=== PATIENT | female | born 1970 | race Caucasian/White ===

== ENCOUNTER 2019-03-03 09:50 | Outpatient (REF) | payer BC, SELFPAY ==
[2019-03-03 13:24] LABS: Amylase 106 U/L (25-115); Lipase 123 U/L (73-393)
[2019-03-03 13:42] LABS: Cholesterol 189 mg/dL (50-200); HDL Cholesterol 72 mg/dL (40-60); LDL CHOLESTEROL 100 mg/dL (<100); Triglyceride 65 mg/dL (30-150)
== END 2019-03-03 10:10 ==
LOC: NCHCN 09:50
PROVIDERS: PCP Nurse Practitioner Family; Visit Provider Nurse Practitioner Family
DX: R10.13 Epigastric pain (principal)
CPT/HCPCS: 80061; 83690; 83721; 82150

== ENCOUNTER 2019-03-07 01:07 | Outpatient (CLI) | payer BC, SELFPAY ==
--- NOTE | 2019-03-07 08:33 | DI.US_ITS ---
SYMPTOM/DIAGNOSIS: EPIGASTRIC DISCOMFORT, R10.13 ABDOMEN ULTRASOUND The liver and spleen are normal in size and echogenicity. The gallbladder is unremarkable, without evidence of stones or wall thickening. No biliary dilatation is seen. The kidneys and aorta as well as pancreas appear normal. There is no ascites. IMPRESSION: Negative abdominal ultrasound.
== END 2019-03-07 01:27 ==
PROVIDERS: PCP Nurse Practitioner Family; Visit Provider Nurse Practitioner Family
DX: R10.13 Epigastric pain (principal)
CPT/HCPCS: 76700

== ENCOUNTER 2019-05-12 01:13 | Outpatient (CLI) | payer OTHER, SELFPAY ==
--- NOTE | 2019-05-12 07:50 | DI.MAMMO_ITS ---
SYMPTOM/DIAGNOSIS: SCREENING, HEALTH CARE, Z00.00 MAMMOGRAMS: Mammograms were interpreted according to the usual protocol including computer analysis with CAD system, tomosynthesis and C view imaging. Comparison is made with prior examinations. Breast density, category B. No suspicious masses or microcalcifications are seen. There is no definite evidence of malignancy. IMPRESSION: Negative mammogram. Routine screening is recommended. Category 1, MQSA ASSESSMENT OF FINDINGS: Negative. Category 1. Patient will receive a letter notifying them of these results. BI-RADS category B. There are scattered areas of fibroglandular density.
== END 2019-05-12 01:33 ==
PROVIDERS: PCP Nurse Practitioner Family; Visit Provider Nurse Practitioner Family
DX: Z00.00 Encounter for general adult medical examination without abnormal findings (principal); Z12.31 Encounter for screening mammogram for malignant neoplasm of breast
CPT/HCPCS: 77063; 77067

== ENCOUNTER 2022-09-01 18:18 | Emergency (ER) | payer MEDICAID, SELFPAY ==
--- NOTE | 2022-09-01 18:15 | RT.EKG_ITS ---
APPROVED REPORT Exam: Resting ECG Reason for Exam: CHEST PAIN Patient Location: E HR:71 bpm ECG Measurements Heart Rate 71 AXIS NV 148 P 44 QRSd 91 QRS -6 QT 402 T 3 QTc 438 Conclusion Sinus rhythm...normal P axis, V-rate 60- 99 Abnrm R prog, consider ASMI or lead placement...Q >30mS, diminished R, V1-V2
[2022-09-01 18:26] VITALS: BP 146/83; PULSE 85; RESP 18; TEMP 37.1; O2SAT 99
--- NOTE | 2022-09-01 19:24 | ED.GENADUL_ITS ---
Discharge Plan Disposition Patient Disposition: STILL A PATIENT Discharge Details Chief Complaint: Chest Pain Primary Care Provider: Beverly Zaragoza ED Provider: Miky Sanchez Home Meds and New Rx's Prescriptions: No Action aspirin 81 MG tablet,chewable 81 mg PO DAILY cetirizine 10 MG tablet,chewable 10 mg PO HS budesonide-formoterol [Symbicort] 10.2 GM HFA aerosol inhaler 2 puff Inhalation BID albuterol sulfate [ProAir RespiClick] 90 MCG aerosol powdr breath activated 90 mcg Inhalation PRN No Known Home Meds Medical Decision Making 1928 --52-year-old female with positive family history for coronary artery disease, diabetes, here with chest tightness that started earlier today and has persisted. Patient also with intermittent episodes of sweating, nausea and presyncope this been occurring 2 times a day over the past couple months. Patient currrently with mild discomfort. Patient is hemodynamically stable, saturating well in no respiratory distress. Concern for ACS. EKG was reviewed and interpreted by me: Please see report, sinus rhythm 71 bpm, no STEMI, abnormal R wave progression. Plan to obtain troponin and trend. HPI General Mode of arrival: ambulatory . Date/Time Provider Initiated Documentation: 09/01/22 18:49 . Limitations to Documentation: no limitations . Information obtained by: patient . HPI Narrative: 52-year-old female with history of asthma, positive family history for cardiac disease, diabetes, here with chief complaint of dyspnea. Patient notes chest discomfort started this morning and has persisted all day. Discomfort has waxed and waned since onset. Discomfort is described as a tightness and localized to left upper chest. She does note intermittent light discomfort in her chest that occurs every so often but does not persist. She also notes intermittent diaphoresis and nausea with presyncope that occurs about 2-3 times daily and last approximately 20 minutes over the past couple months. Related Data Home Medications Medication Instructions Recorded Confirmed Unknown [No Known Home Meds] 01/21/15 01/21/15 albuterol sulfate 90 mcg/actuation 90 mcg inhalation PRN 04/26/18 breath activated powder inhaler (ProAir RespiClick) aspirin 81 mg chewable tablet 81 mg PO DAILY 04/26/18 budesonide-formoterol HFA 160 2 puff inhalation BID 04/26/18 mcg-4.5 mcg/actuation aerosol inhaler (Symbicort) cetirizine 10 mg chewable tablet 10 mg PO HS 04/26/18 Allergies Allergy/AdvReac Type Severity Reaction Status Date / Time Sulfa (Sulfonamide Allergy Mild Unverified 06/10/18 14:32 Antibiotics) General Stated Complaint: Chest Pain MOO: 3 Review of Systems Constitutional Constitutional: Denies fever(s) Cardiovascular Cardiovascular: Reports as per HPI, Reports chest pain and Denies dyspnea Respiratory Respiratory: Denies dyspnea PFSH Medical History Asthma Grief reaction Social History Smoking/Tobacco Use Status: Never Smoking risk assessment performed?: Yes Alcohol Intake: current Alcohol Intake frequency: a few times a month Drug use: Never Substance use type: does not use Do you feel safe at home: Yes Do you feel safe in your relationship?: Yes Exam Const General: cooperative and no acute distress HENMT Mouth: moist mucous membranes Eyes Conjunctivae: normal conjunctivae Sclera: normal sclerae Neck Neck: trachea midline and supple Resp Auscultation: clear to auscultation bilaterally, no rales, no rhonchi and no wheezes Cardio Rate: regular rate and not tachycardic Rhythm: regular rhythm GI Palpation: soft, not firm, no guarding, no masses, not rigid and nontender Skin General skin exam: no rashes or lesions noted Neuro General: patient alert, patient awake and tone normal Extrem General: no calf tenderness and no edema Psych Appearance: grossly normal Mental Status: mental status grossly normal Course Vital Signs Vital signs: Vital Signs Temperature 37.1 C 09/01/22 18:26 Pulse 85 09/01/22 18:26 Respiratory Rate 18 09/01/22 18:26 Blood Pressure 146/83 H 09/01/22 18:26 Pulse Oximetry 99 09/01/22 18:26 Temperature 37.1 C 09/01/22 18:26 Temperature Source Tympanic 09/01/22 18:26 Pulse 85 09/01/22 18:26 Respiratory Rate 18 09/01/22 18:26 Respiratory Effort 09/01/22 18:29 Blood Pressure 146/83 H 09/01/22 18:26 Blood Pressure Position Supine 09/01/22 18:26 Pulse Oximetry 99 09/01/22 18:26 Oxygen Delivery Method Room Air 09/01/22 18:26 Oxygen Flow Rate 0 09/01/22 18:26 Pain Level 5 09/01/22 18:26 PAWSS Have you Been Recently Intoxicated or Drunk Within the Last 30 days?: No Have you Ever Experienced Previous Episodes of Alcohol Withdrawal?: No Have you ever Experienced Withdrawal Seizures?: No Have you ever Experienced Delirium Tremens(DT)s?: No Have you ever undergone Alcohol Rehabilitation Treatment (i.e, inpt ot outpatient treatment programs)?: No Have you ever Experienced Blackouts?: No Have you ever Combined Alcohol with other Downers within the last 90 days?: No Have you ever Combined Alcohol with any other Substance of Abuse during the last 90 days?: No Positive Blood Alcohol level on Presentation? [PCS.BAL]: No Evidence of Increased Autonomic Activity (i.e. HR>120, tremor, sweating, agitation, nausea)?: No Result: 0
[2022-09-01 19:34] LABS: Abs Immature Grans 0.05 10^3/uL (0.0-0.06); Absolute Basophil Count 0.07 10^3/uL (0.0-0.2); Absolute Eosinophil Count 0.14 10^3/uL (0.0-0.7); Absolute Lymphocyte Count 2.74 10^3/uL (1.2-3.4); Absolute Monocyte Count 0.94 10^3/uL (0.1-0.8); Basophils % 0.5; HCT 38.7 % (36.0-46.0); Immature Grans % 0.4; Lymphocytes % 19.2; MCHC 33.6 % (32.0-36.0); MCV 92 fL (80-95); MPV 11.4 fL (8.0-11.0); Monocytes % 6.6; Neutrophils % 72.3; Platelet Count 240 10^3/uL (130-400); RDW 13.2 % (11.7-14.6); WBC 14.27 10^3/uL (4.4-10.8)
[2022-09-01 19:41] LABS: Absolute Neutrophil Count 10.32 10^3/uL (1.2-6.7)
--- NOTE | 2022-09-01 20:00 | DI.RAD_ITS ---
Exam(s) XR CHEST 2V PA LATERAL EXAM: XR CHEST 2V PA LATERAL CLINICAL HISTORY: chest pain TECHNIQUE: 2D digital imaging was performed of the chest. Two images were obtained. PA and lateral views were obtained. COMPARISON: CR CHEST 2 VIEWS PA,LAT from 06/21/2017 FINDINGS: MEDIASTINUM: Normal. HEART: Normal. PULMONARY VASCULATURE: Normal. LUNGS: Clear. PLEURAL SPACE: No pleural effusion or pneumothorax. BONE:Within normal limits for the patient's age. OTHER FINDINGS:Normal. IMPRESSION: No acute pulmonary findings. DATA REPOSITORY: RADIATION DOSE DELIVERED:
[2022-09-01] MEDS: Aspirin 325 MG TAB PO (20:14)
[2022-09-01 20:36] LABS: ALT 20 U/L (14-59); AST 26 U/L (15-37); Albumin 3.8 g/dL (3.4-5.0); Alkaline Phosphatase 90 U/L (46-116); BUN 16 mg/dL (7-18); Bilirubin, Total 1.1 mg/dL (0.2-1.0); CREATININE 0.8 mg/dL (0.55-1.02); Calcium 9.2 mg/dL (8.5-10.1); Chloride 103 mmol/L (98-107); Glucose 121 mg/dL (74-106); Potassium 4.3 mmol/L (3.5-5.1); Sodium 140 mmol/L (136-145); Total Protein 7.5 g/dL (6.4-8.2); Troponin I < 50 ng/L (<or=60)
--- NOTE | 2022-09-01 20:57 | DI.VRAD_ITS ---
PROCEDURE INFORMATION: Exam: XR Chest Exam date and time: 09/01/2022 8:34 PM Age: 52 years old Clinical indication: Other: Chest pain TECHNIQUE: Imaging protocol: Radiologic exam of the chest. Views: 2 views. COMPARISON: CR CHEST 2 VIEWS PA,LAT 06/21/2017 11:03 AM FINDINGS: Lungs: Clear lungs. Pleural spaces: No pneumothorax. No sizable pleural effusion. Heart/Mediastinum: No cardiomegaly. Bones/joints: Unremarkable. IMPRESSION: Clear lungs. Dictated and Authenticated by: Karan Kirby MD. Ordering:JJ Bolaños MD
--- NOTE | 2022-09-01 22:18 | ED.PROG_ITS ---
Date of service: 09/01/22 Time of Service: 22:19 Medical Decision Making pt's initial lab work and xray unremarkable, she remains stable. She states when she moves her arms she feels a tightness in her chest, denies radiation of pain or pain with exertion, will obtain delta troponin. pt stable, negative delta troponin. Discussed with pt and she will f/u with pcp, return precautions given Sign Out Sign Out Data: Sign Out Comment: Follow-up labs including initial and delta troponin. Follow- up chest x-ray. Reassess patient for disposition. History is concerning for potential ACS. Patient was given aspirin 325 mg. Last updated by Miky Sanchez MD at 09/01/22 20:14 Discharge Plan Disposition Patient Disposition: HOME Condition: Stable Discharge Details Clinical Impression: Chest pain Primary Care Provider: Beverly Zaragoza ED Provider: Zak Harley Home Meds and New Rx's Prescriptions: Continued aspirin 81 MG tablet,chewable 81 mg PO DAILY cetirizine 10 MG tablet,chewable 10 mg PO HS budesonide-formoterol [Symbicort] 10.2 GM HFA aerosol inhaler 2 puff Inhalation BID albuterol sulfate [ProAir RespiClick] 90 MCG aerosol powdr breath activated 90 mcg Inhalation PRN Discharge Instructions Instructions: Chest Pain (ED) Additional Instructions: your ekg, blood work and chest xray did not show concerning findings at this time follow up with your primary care provider as soon as possible if you feel more ill, have severe worsening pain or difficulty breathing return to the emergency department
[2022-09-01 22:23] LABS: Troponin I < 50 ng/L (<or=60)
[2022-09-01 22:46] VITALS: BP 132/69; PULSE 72; RESP 16; TEMP 36.3; O2SAT 99
== END 2022-09-01 22:52 | disposition home or self-care (01) ==
PROVIDERS: Student in an Organized Health Care Education/Training Program; Emergency Provider Emergency Medicine; PCP Family Medicine
DX: R07.89 Other chest pain (principal); I25.10 Atherosclerotic heart disease of native coronary artery without angina pectoris; E11.9 Type 2 diabetes mellitus without complications; J45.909 Unspecified asthma, uncomplicated
CPT/HCPCS: 80053; 93005; 99284; 71046; 83735; 84484; 85025; 93010

== ENCOUNTER 2023-02-22 18:52 | Outpatient (REF) | payer MEDICAID, SELFPAY ==
[2023-02-22 17:31] LABS: ALT 22 U/L (14-59); AST 21 U/L (15-37); Albumin 3.6 g/dL (3.4-5.0); Alkaline Phosphatase 90 U/L (46-116); Anion Gap 8.6 mmol/L (3-11); BUN 9 mg/dL (7-18); Bilirubin, Total 1.2 mg/dL (0.2-1.0); CO2 28.4 mmol/L (21.0-32.0); CREATININE 0.8 mg/dL (0.55-1.02); Calculated LDL 106 mg/dL (<100); Chloride 105 mmol/L (98-107); Cholesterol 189 mg/dL (<200); Glucose 140 mg/dL (74-106); HDL Cholesterol 59 mg/dL (40-60); Potassium 4.2 mmol/L (3.5-5.1); Sodium 142 mmol/L (136-145); TSH (W/Ref FT4) 1.34 uIU/mL (0.36-3.74); Total Protein 7.2 g/dL (6.4-8.2); Triglyceride 123 mg/dL (<150)
== END 2023-02-22 18:53 | disposition home or self-care (01) ==
LOC: NCHCN 18:52
PROVIDERS: PCP Family Medicine; Visit Provider Nurse Practitioner Family
DX: R73.03 Prediabetes (principal); R79.89 Other specified abnormal findings of blood chemistry; I10 Essential (primary) hypertension; I25.10 Atherosclerotic heart disease of native coronary artery without angina pectoris
CPT/HCPCS: 80053; 80061; 83036; 84443

== ENCOUNTER 2023-02-26 02:14 | Outpatient (CLI) | payer MEDICAID, SELFPAY ==
[2023-02-26] MEDS: Albuterol HFA 18 GM 200 PUFF INH IH (15:53)
[2023-02-26] MEDS: Inhaler, Assist Device 1 EACH MC (15:53)
--- NOTE | 2023-03-01 12:03 | W.PFT ---
Date of service: 02/26/23 Time of Service: 14:20 Pulmonary Function Test Result Indications: Asthma Interpretation Spirometry: There is no airflow limitation. There is no significant bronchodilator response. Lung Volumes: Normal lung volumes Diffusion Capacity: Normal diffusion Airway Pressure: Normal airways resistance Impression Normal pulmonary function testing Clinical Correlation therefore is recommended.
== END 2023-02-26 02:15 | disposition home or self-care (01) ==
LOC: RT 02:14
PROVIDERS: PCP Family Medicine; Visit Provider Nurse Practitioner Family
DX: J45.30 Mild persistent asthma, uncomplicated (principal)
CPT/HCPCS: 94060; 94726; 94729

== ENCOUNTER 2023-03-17 11:25 | Outpatient (CLI) | payer MEDICAID, SELFPAY ==
--- NOTE | 2023-03-17 08:30 | DI.RAD_ITS ---
Exam(s) XR SHOULDER RT COMPLETE 2+V EXAM: XR SHOULDER RT COMPLETE 2+V CLINICAL HISTORY: right shoulder pain. TECHNIQUE: 2D digital imaging was performed. COMPARISON: No exams were available for comparison FINDINGS: Two views No evidence of fracture or dislocation or abnormal soft tissue calcifications. Subacromial space radha ears unremarkable. Glenohumeral joint unremarkable. AC joint exhibits mild degenerative changes. Bone density normal. No osseous lesions. IMPRESSION: No significant osseous findings in the shoulder. DATA REPOSITORY: RADIATION DOSE DELIVERED:
== END 2023-03-17 11:26 | disposition home or self-care (01) ==
LOC: DIORS 11:25
PROVIDERS: PCP Physician Assistant Medical; Referring Provider Physician Assistant Medical; Visit Provider Student in an Organized Health Care Education/Training Program
DX: M25.511 Pain in right shoulder (principal)
CPT/HCPCS: 73030

== ENCOUNTER 2023-05-21 17:51 | Outpatient (REF) | payer MEDICAID, SELFPAY ==
[2023-05-21 20:13] LABS: Hemoglobin A1C 6.9 % (<5.7)
== END 2023-05-21 17:52 | disposition home or self-care (01) ==
LOC: NCHCN 17:51
PROVIDERS: PCP Physician Assistant Medical; Visit Provider Nurse Practitioner Family
DX: R73.03 Prediabetes (principal)
CPT/HCPCS: 83036

== ENCOUNTER → 2023-07-02 00:30 | Outpatient (CLI) | payer MEDICAID, SELFPAY ==
--- NOTE | 2023-07-02 | DI.MAMMO_ITS ---
Exam(s) MAMMO SCREENING EXAM: MAMMO SCREENING CLINICAL HISTORY: SCREENING MAMMO FOR BREAST CANCER Z12.31 [facility] Z00.00 TECHNIQUE: Bilateral full field digital CC and MLO mammographic images were obtained with 3D tomosyn thesis and utilizing computer aided detection (CAD). COMPARISON: Available for comparison. FINDINGS: Masses/Architectural Distortion: None seen. Microcalcifications: No suspicious pleomorphic-type are seen. Skin Thickening/Nipple Retraction: None. IMPRESSION: 1. No significant interval change with no specific features of malignancy noted. 2. Unless there is more urgent need, screening mammography is recommended, as per [place] [employer] guidelines. BI-RADS Category 1 - Negative Breast Density - Category B - Scattered areas of fibroglandular density Breast density category C or D implies that the patient has dense breast tissue. Dense breast tissue is very common and is not abnormal but dense breast tissue can make it harder to find cancer on a ma mmogram. Also, dense breast tissue may increase their breast cancer risk. This information about the result of the mammogram report was provided to the patient to raise their awareness. Use this report when you speak with the patient about their risks for breast cancer, which includes their family hist ory. At that time, you may recommend for more screening tests (Ultrasound or MRI) as they might be us eful based on their risk. A negative radiographic report should not delay biopsy if a dominant or clinically suspicious mass is present. Up to ten percent of cancers are not identified on mammography. A negative report may reinforce clinical impression. Adenosis and dense breasts may obscure an underlying neoplasm. False positive reports average 6 to 10%. Patient will receive a letter notifying them of these results.
== END ==
PROVIDERS: PCP Physician Assistant Medical; Visit Provider Nurse Practitioner Family
DX: Z12.31 Encounter for screening mammogram for malignant neoplasm of breast (principal)
CPT/HCPCS: 77063; 77067

== ENCOUNTER 2023-08-13 15:40 | Outpatient (REF) | payer MEDICAID, SELFPAY ==
[2023-08-13 16:44] LABS: Magnesium 2.2 mg/dL (1.8-2.4)
[2023-08-13 16:49] LABS: Vitamin D 25 Total 24.8 ng/mL (30-100)
== END 2023-08-13 15:41 | disposition home or self-care (01) ==
LOC: NCHCN 15:40
PROVIDERS: PCP Physician Assistant Medical; Visit Provider Nurse Practitioner Family
DX: E11.9 Type 2 diabetes mellitus without complications (principal); K20.0 Eosinophilic esophagitis; Z00.00 Encounter for general adult medical examination without abnormal findings
CPT/HCPCS: 82306; 83036; 83735

== ENCOUNTER 2023-12-27 14:10 | Outpatient (REF) | payer MEDICAID, SELFPAY ==
[2023-12-27 15:55] LABS: Hemoglobin A1C 7.2 % (<5.7)
[2023-12-27 16:07] LABS: Vitamin D 25 Total 29.3 ng/mL (30-100)
== END 2023-12-27 14:11 | disposition home or self-care (01) ==
LOC: NCHCN 14:10
PROVIDERS: PCP Nurse Practitioner Family; Visit Provider Nurse Practitioner Family
DX: E11.9 Type 2 diabetes mellitus without complications (principal); E55.9 Vitamin D deficiency, unspecified
CPT/HCPCS: 82306; 83036

== ENCOUNTER 2024-08-04 15:37 | Outpatient (REF) | payer MEDICAID, SELFPAY ==
[2024-08-04 16:30] LABS: Anion Gap 9.7 mmol/L (3-11); BUN 16 mg/dL (7-18); CO2 27.3 mmol/L (21.0-32.0); CREATININE 0.7 mg/dL (0.55-1.02); Calcium 9.4 mg/dL (8.5-10.1); Chloride 105 mmol/L (98-107); Estimated GFR 101.44 (mL/min/1.73m2); Glucose 128 mg/dL (74-106); Potassium 4.3 mmol/L (3.5-5.1); Sodium 142 mmol/L (136-145)
[2024-08-04 16:35] LABS: Hemoglobin A1C 6.7 % (<5.7)
== END 2024-08-04 15:38 | disposition home or self-care (01) ==
LOC: NCHCN 15:37
PROVIDERS: PCP Nurse Practitioner Family; Visit Provider Nurse Practitioner Family
DX: E11.9 Type 2 diabetes mellitus without complications (principal); E55.9 Vitamin D deficiency, unspecified
CPT/HCPCS: 80048; 83036

== ENCOUNTER 2024-09-25 02:37 | Outpatient (CLI) | payer MEDICAID, SELFPAY ==
--- NOTE | 2024-09-25 08:00 | DI.RAD_ITS ---
Exam(s) XR FOOT LT COMPLETE EXAM: XR FOOT LT COMPLETE CLINICAL HISTORY: Left foot pain,M79.672. TECHNIQUE: 2D digital imaging was performed. Three views. COMPARISON: No exams were available for comparison FINDINGS: BONES: No acute fracture is present. No bony destructive lesion is seen. Heel spurs. [place] adjac ent to the cuboid. JOINTS: No dislocation present. Mild degenerative changes at the 1st MTP joint and talonavicular grady int. SOFT TISSUE: Normal. IMPRESSION: Mild degenerative changes and heel spurs. DATA REPOSITORY: RADIATION DOSE DELIVERED:
== END 2024-09-25 02:57 ==
LOC: DI 02:37
PROVIDERS: PCP Nurse Practitioner Family; Visit Provider Podiatrist
DX: M79.672 Pain in left foot (principal)
CPT/HCPCS: 73630

== ENCOUNTER 2025-03-02 23:28 | Emergency (ER) | payer OTHER, SELFPAY ==
--- NOTE | 2025-03-02 23:30 | RT.EKG_ITS ---
APPROVED REPORT Exam: Resting ECG Reason for Exam: ABD pain Patient Location: E HR:60 bpm ECG Measurements Heart Rate 60 AXIS DE 160 P 47 QRSd 87 QRS -28 QT 420 T [id number] QTc 421 Conclusion Sinus rhythm...normal P axis, V-rate 60- 99 Nonspecific T abnormalities, inferior leads...T <-0.10mV, II III aVF I have reviewed and interpreted ECG and agree with software generated interpretation.
[2025-03-02 23:31] VITALS: BP 209/81; PULSE 70; RESP 18; O2SAT 97
[2025-03-02 23:36] VITALS: PULSE 63; PULSE 64; RESP 14; O2SAT 99
[2025-03-02 23:40] VITALS: PULSE 62; RESP 13; O2SAT 97
[2025-03-02 23:46] VITALS: BP 158/68; PULSE 61; PULSE 68; RESP 15; O2SAT 98
[2025-03-02 23:50] VITALS: PULSE 61; PULSE 62; RESP 13; O2SAT 99
[2025-03-02 23:59] LABS: Abs Immature Grans 0.01 10^3/uL (0.0-0.06); Absolute Basophil Count 0.04 10^3/uL (0.0-0.2); Absolute Eosinophil Count 0.83 10^3/uL (0.0-0.7); Absolute Monocyte Count 0.67 10^3/uL (0.1-0.8); Absolute Neutrophil Count 3.13 10^3/uL (1.2-6.7); Basophils % 0.5 %; HCT 44.7 % (36.0-46.0); HGB 14.5 g/dL (11.2-15.7); Immature Grans % 0.1 %; Lymphocytes % 43.5 %; MCH 29.2 pg (27.0-33.0); MCHC 32.4 % (32.0-36.0); MCV 90 fL (80-95); MPV 11.2 fL (8.0-11.0); Monocytes % 8.1 %; Neutrophils % 37.8 %; Platelet Count 247 10^3/uL (130-400); RBC 4.97 10^6/uL (3.93-5.22); RDW 13.1 % (11.7-14.6); RDW-SD 42.7 fL; WBC 8.28 10^3/uL (4.4-10.8)
[2025-03-03] VITALS (16 sets, daily range): BP systolic 135–157; BP diastolic 62–70; PULSE 55–64; RESP 10–20; O2SAT 94–100
[2025-03-03] MEDS: Sucralfate 1 GM TAB PO (00:03)
[2025-03-03] MEDS: MYLANTA 30 ML, LIDOCAINE 2% VISCOUS UD 15 ML PO (00:03)
[2025-03-03] MEDS: Ondansetron 4 MG/2 ML VIAL IVP ×2 (00:03→01:19)
[2025-03-03] MEDS: Pantoprazole 40 MG VIAL IVP (00:03)
[2025-03-03 00:12] LABS: Prothrombin Time 9.8 sec (9.1-11.1)
[2025-03-03 00:15] LABS: PTT Activated 23.9 sec (20.6-30.2)
[2025-03-03 00:17] LABS: ALT 23 U/L (14-59); AST 15 U/L (15-37); Albumin 3.7 g/dL (3.4-5.0); Alkaline Phosphatase 111 U/L (46-116); Anion Gap 6.3 mmol/L (3-11); BUN 12 mg/dL (7-18); Bilirubin, Total 1.2 mg/dL (0.2-1.0); CO2 29.7 mmol/L (21.0-32.0); CREATININE 0.8 mg/dL (0.55-1.02); Calcium 9.6 mg/dL (8.5-10.1); Chloride 103 mmol/L (98-107); Estimated GFR 86.42 (mL/min/1.73m2); Glucose 273 mg/dL (74-106); Lipase 52 U/L (<78); Potassium 3.7 mmol/L (3.5-5.1); Sodium 139 mmol/L (136-145); Total Protein 7.3 g/dL (6.4-8.2)
[2025-03-03 00:23] LABS: Troponin I < 4 ng/L (<or=51)
[2025-03-03 00:26] LABS: D-Dimer 344 ng/mlFEU (<500)
[2025-03-03] MEDS: Omnipaque 350 MG/ML 100 ML BTL IJ (00:40)
[2025-03-03] MEDS: Normal Saline - Diluent 50 ML VIAL IJ (00:40)
[2025-03-03 01:02] LABS: Troponin I < 4 ng/L (<or=51)
--- NOTE | 2025-03-03 01:07 | DI.CT_ITS ---
Exam(s) CT THORAX ABD/PEL CTA EXAM: CT THORAX ABD/PEL CTA CLINICAL HISTORY: chest and epigastric pain, eval aorta/pancrease. TECHNIQUE: Imaging Protocol: Axial computed tomography images with coronal and sagittal reformatted images were created and reviewed CONTRAST MATERIAL: Intravenous: Omnipaque 350 Contrast volume:100 ml Oral: None COMPARISON: No exams were available for comparison FINDINGS: CHEST: AORTA: Ascending thoracic aorta exhibits normal diameter. There is no aneurysmal dilatation of the t horacic and abdominal aorta as and no evidence of significant atherosclerotic disease nor evidence of aortic dissection. There is no significant stenosis at the origin of the celiac, SMA, AMY, and irma l arteries and no significant atherosclerotic disease at the aortic bifurcation nor within the aortoi liac segments. Common femoral arteries both appear unremarkable. PULMONARY ARTERIES: No obvious emboli LUNGS: No infiltrates nor pleural effusions. No significant pulmonary nodules. No findings in the t rachea and mainstem bronchi and there is no bronchiectasis. MEDIASTINUM: There is no hilar nor mediastinal adenopathy. CARDIAC: Heart size is normal. There is no pericardial effusion. ABDOMEN: AORTA: Unremarkable. See above There is no ascites. LIVER: There are no focal hepatic lesions nor dilatation of intrahepatic ducts. GALLBLADDER/BILIARY: No obvious gallbladder pathology. CBD is not dilated. PANCREAS: No evidence of pancreatic mass nor dilatation of the pancreatic duct. SPLEEN: Spleen is not enlarged. There are no intrasplenic lesions. Splenic and portal veins are pozo nt. ADRENALS: There are no significant adrenal masses. KIDNEYS: No cysts evident. No calculi nor hydronephrosis. No solid renal masses. ABDOMINAL AORTA: The abdominal aorta is not enlarged. There is also no aneurysmal dilatation of the iliac arteries. No stenosis nor dissection. LYMPH NODES: There is no retroperitoneal nor para-aortic adenopathy. No obvious mesenteric masses. ABDOMINAL WALL: No evidence of significant anterior abdominal wall hernia. GI: There is no evidence of bowel obstruction, free air, nor abscess. PELVIS: LYMPH NODES: There is no intrapelvic nor inguinal adenopathy. GI: No evidence of appendicitis.No evidence of significant sigmoid diverticular disease. URINARY BLADDER: No calculi nor masses evident REPRODUCTIVE: Uterus is surgically absent. No abnormal adnexal masses nor free fluid in the pelvis. OSSEOUS: No significant osseous lesions. No fractures Chronic advanced disc space narrowing L5-S1 level. No listhesis evident. Other disc spaces in the l umbar spine exhibit normal height. IMPRESSION: 1. No evidence of aortic aneurysm in the chest and abdomen nor aneurysmal dilatation of the iliac art eries. There is also no evidence of aortic dissection. 2. No evidence of obvious pulmonary emboli. No acute pulmonary findings. 3. No acute findings in the abdomen pelvis. 4. The uterus is surgically absent. There are no abnormal adnexal masses nor free fluid in the pelvi s. RADIATION DOSE DELIVERED: 1,009.24mGy.cm Total DLP DATA REPOSITORY: All CT scans at this facility are submitted to the National Radiology Data Registry (NRDR) Dose Index Registry (DIR) with the [employer] (ACR). RADIATION OPTIMIZATION: All CT scans at this facility use at least one of these dose optimization te chniques: automated exposure control; mA and/or kV adjustment per patient size (includes targeted exa ms where dose is matched to clinical indication); or iterative reconstruction.
--- NOTE | 2025-03-03 01:10 | ED.GENADUL_ITS ---
Discharge Plan Disposition Patient Disposition: Home Condition: Good Discharge Details Clinical Impression: Acute epigastric pain Primary Care Provider: Jewell Cutler ED Provider: Dominic Tellez Home Meds and New Rx's Prescriptions: New pantoprazole [Protonix] 40 mg tablet,delayed release (DR/EC) 40 mg PO DAILY 56 Days Qty: 60 0RF sucralfate [Carafate] 1 gram tablet 1 g PO BID Qty: 60 0RF No Action lisinopril 10 mg tablet 10 mg PO DAILY albuterol sulfate [Ventolin HFA] 90 mcg/actuation HFA aerosol inhaler 2 puff inhalation Q6H PRN cyclobenzaprine 5 mg tablet 5 mg PO QHS cyanocobalamin (vitamin B-12) 1,000 mcg capsule 1,000 mcg PO DAILY multivitamin Tablet 1 tab PO DAILY cetirizine 10 MG tablet,chewable 10 mg PO HS budesonide-formoterol [Symbicort] 10.2 GM HFA aerosol inhaler 2 puff Inhalation BID omeprazole 40 mg capsule,delayed release(DR/EC) 40 mg PO DAILY Discharge Instructions Instructions: Abdominal Pain, Adult ED Additional Instructions: At this time your workup has returned reassuring. The CAT scan shows no evidence of significant abnormality in your gallbladder or pancreas abdomen or chest. Your labs show no heart abnormalities, or other acute pathology. As we discussed together I am concerned that you may have a recurrence of your eosinophilic esophagitis. Please stick with a bland diet, avoid any spicy foods, greasy foods, tomato based products or citrus-based products. Please record a food diary. Please take the antacid medications that have been prescribed as directed. They have been sent to your pharmacy on hold. If you notice any worsening of your symptoms, or any new symptoms such as vomiting, diarrhea, fever, chills, shortness of breath, chest pain, numbness, weakness, or fainting , please return immediately to the emergency department for reevaluation. Please follow up with your primary care provider as soon as possible for reassessment and reevaluation. As always, it was a pleasure participating in your medical care today. Referrals: Jewell Cutler [Primary Care Provider] - HPI General Date/Time Provider Initiated Documentation: 03/02/25 23:29 . HPI Narrative: This is a 54-year-old female with a past medical history of type 2 diabetes mellitus, eosinophilic esophagitis, who presents today for evaluation of epigastric discomfort. Patient states that at around 9 AM this morning she developed epigastric pain discomfort which she describes as sharp stabbing sensation. It is worse when she moves her body in different positions, but is best when she stays still. Secondarily, she does get up and exert herself, that naturally also brings about worsening in the pain secondary to the generalized movement. Pain radiates slightly upward into the chest. She denies pleuritic chest pain. She denies nausea or vomiting. She denies fever or chills. She denies arm neck or shoulder pain or shortness of breath. No other complaints at this time. Related Data Home Medications ?Medication ?Instructions ?Recorded ?Confirmed budesonide-formoterol HFA 160 2 puff inhalation BID 04/26/18 03/02/25 mcg-4.5 mcg/actuation aerosol inhaler (Symbicort) cetirizine 10 mg chewable tablet 10 mg PO HS 04/26/18 03/02/25 omeprazole 40 mg capsule,delayed 40 mg PO DAILY 02/24/23 03/02/25 release multivitamin 1 tab PO DAILY 12/09/23 03/02/25 albuterol sulfate 90 mcg/actuation 2 puff inhalation Q6H PRN 08/28/24 03/02/25 aerosol inhaler (Ventolin HFA) cyclobenzaprine 5 mg tablet 5 mg PO QHS 08/28/24 03/02/25 lisinopril 10 mg tablet 10 mg PO DAILY 08/28/24 03/02/25 cyanocobalamin (vitamin B-12) 1,000 mcg PO DAILY pt's choice 09/25/24 03/02/25 1,000 mcg capsule pantoprazole 40 mg tablet,delayed 40 mg PO DAILY 8 weeks #60 tabs 03/03/25 release (Protonix) sucralfate 1 gram tablet (Carafate) 1 g PO BID #60 tabs 03/03/25 Previous Rx's ?Medication ?Instructions ?Recorded pantoprazole 40 mg tablet,delayed 40 mg PO DAILY 8 weeks #60 tabs 03/03/25 release (Protonix) sucralfate 1 gram tablet (Carafate) 1 g PO BID #60 tabs 03/03/25 Allergies Allergy/AdvReac Type Severity Reaction Status Date / Time Sulfa (Sulfonamide Allergy Mild Hives and Verified 03/02/25 23:35 Antibiotics) itching valsartan Allergy Unknown Unknown Verified 03/02/25 23:35 venlafaxine Allergy Unknown Unknown Verified 03/02/25 23:35 General Stated Complaint: Epigastric Pain/Over45 MOO: 3 Exam Narrative Exam Narrative: 1.Const: Well-nourished, Well-developed, appearing stated age 2.Eyes: PERRL, no conjunctival injection, and symmetrical lids. 3.ENT: Atraumatic external nose and ears. Moist MM. Neck: Symmetric, trachea midline, No thyromegaly. 4.CVS: +S1/S2, Peripheral pulses 2+ and equal in all extremities. Brisk capi llary refill in all extremities. 5.RESP: Unlabored respiratory effort. Clear to auscultation bilaterally. No wheezes rales or rhonchi 6.GI: Soft, nondistended, mild tenderness on palpation of the epigastric region. Negative Miller sign, no pain at McBurney's point. 7.MSK: Normocephalic/Atraumatic, Extremities w/o deformity or ttp No cyanosis or clubbing, Normal movement of all extremities 8.Skin: Warm, Dry. No rashes or lesions. 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 Sensation grossly intact, no focal neurologic deficits. 10.Psych: (AAO) x3. Appropriate mood and affect Course Vital Signs Vital signs: Vital Signs Pulse 70 03/02/25 23:31 Respiratory Rate 18 03/02/25 23:31 Blood Pressure 209/81 H 03/02/25 23:31 Pulse Oximetry 97 03/02/25 23:31 Pulse 63 03/03/25 00:20 Pulse 63 03/03/25 00:20 Respiratory Rate 11 L 03/03/25 00:20 Blood Pressure 141/65 H 03/03/25 00:16 Blood Pressure Mean 90 03/03/25 00:16 Blood Pressure Position Sitting 03/02/25 23:31 Pulse Oximetry 96 03/03/25 00:20 Oxygen Delivery Method Room Air 03/02/25 23:31 Oxygen Flow Rate 0 03/02/25 23:31 Lab/Test Results Lab/Test Results: Laboratory Tests Range/Units 03/02/25 03/03/25 23:42 00:39 WBC (4.4-10.8) 10^3/uL 8.28 RBC (3.93-5.22) 10^6/uL 4.97 Hgb (11.2-15.7) g/dL 14.5 Hct (36.0-46.0) % 44.7 MCV (80-95) fL 90 MCH (27.0-33.0) pg 29.2 MCHC (32.0-36.0) % 32.4 RDW (11.7-14.6) % 13.1 Plt Count (130-400) 10^3/uL 247 MPV (8.0-11.0) fL 11.2 H Immature Gran % % 0.1 Neutrophils % % 37.8 Lymphocytes % % 43.5 Monocytes % % 8.1 Eosinophils % % 10.0 Basophils % % 0.5 Nucleated RBC % (0.0-0.3) % 0.0 Absolute Neutrophils (1.2-6.7) 10^3/uL 3.13 Absolute Lymphocytes (1.2-3.4) 10^3/uL 3.60 H Absolute Monocytes (0.1-0.8) 10^3/uL 0.67 Absolute Eosinophils (0.0-0.7) 10^3/uL 0.83 H Absolute Basophils (0.0-0.2) 10^3/uL 0.04 PT (9.1-11.1) sec 9.8 INR (0.9-1.1) 1.0 APTT (20.6-30.2) sec 23.9 D-Dimer (<500) ng/mlFEU 344 Sodium (136-145) mmol/L 139 Potassium (3.5-5.1) mmol/L 3.7 Chloride (98-107) mmol/L 103 Carbon Dioxide (21.0-32.0) mmol/L 29.7 Anion Gap (3-11) mmol/L 6.3 BUN (7-18) mg/dL 12 Creatinine (0.55-1.02) mg/dL 0.8 Est GFR (CKD-EPI 2020) (mL/min/1.73m2) 86.42 Glucose (74-106) mg/dL 273 H Calcium (8.5-10.1) mg/dL 9.6 Total Bilirubin (0.2-1.0) mg/dL 1.2 H AST (15-37) U/L 15 ALT (14-59) U/L 23 Alkaline Phosphatase (46-116) U/L 111 Troponin I (<or=51) ng/L < 4 < 4 Total Protein (6.4-8.2) g/dL 7.3 Albumin (3.4-5.0) g/dL 3.7 Lipase (<78) U/L 52 Medical Decision Making This is a 54-year-old female with a past medical history of type 2 diabetes mellitus, eosinophilic esophagitis, who presents today for evaluation of epigastric discomfort. Patient states that at around 9 AM this morning she developed epigastric pain discomfort which she describes as sharp stabbing sensation. It is worse when she moves her body in different positions, but is best when she stays still. Secondarily, she does get up and exert herself, that naturally also brings about worsening in the pain secondary to the generalized movement. Pain radiates slightly upward into the chest. She denies pleuritic chest pain. She denies nausea or vomiting. She denies fever or chills. She denies arm neck or shoulder pain or shortness of breath. No other complaints at this time. Patient did take some Tums and some Pepto-Bismol prior to arrival but this did not help with her symptoms. Exam demonstrates a well-appearing female, mild reproducibility of symptoms and tenderness in the epigastric region on palpation. Negative Miller sign, no pain at McBurney's point. Differential includes pancreatitis, gallbladder pathology, PE is less likely. Eosinophilic esophagitis exacerbation, esophageal spasm or gastric ulcers of concern. EKG shows no evidence of STEMI, symptoms. Notably less consistent with ACS. However we will evaluate for these concerning etiologies, give GI cocktail, Protonix, monitor closely and reassess. Tooth 20 9 AM On reassessment patient is feeling better. Symptoms have improved but not completely resolved. Serial troponins are normal showing no signs of cardiac etiology. EKG benign. D-dimer normal no evidence of PE. Lipase bilirubin transaminases stable. CT imaging shows no evidence of cholecystitis, mesenteric ischemia, aortic pathology or other concerning atypical etiology. Differential is highest for eosinophilic esophagitis. Will recommend dietary changes, will start on Protonix and Carafate, will recommend close follow-up with PCP and reassessment potentially with surgery for EGD. Patient otherwise stable with no evidence of acute life-threatening etiology. Discussed red flags for which to return return. I have extensively reviewed the treatment plan and discharge instructions with the patient and their family. I have addressed all patient concerns at this time. The patient and family was made aware of what symptoms to monitor for that would warrant a return to the emergency department. Discussed the plan with the patient and family, they demonstrate verbal understanding and agreement with our assessment and plan at this time. The documentation in this chart was dictated using [employer] dictation software. Please excuse any dictation errors. FINDINGS: VASCULATURE: Pulmonary arteries: Normal. No pulmonary emboli. Aorta: No aortic aneurysm. No aortic dissection. Celiac trunk and mesenteric arteries: No occlusion or significant stenosis. Renal arteries: No occlusion or significant stenosis. Right iliac arteries: No occlusion or significant stenosis. Left iliac arteries: No occlusion or significant stenosis. CHEST: Lungs: Unremarkable. No consolidation. No masses. Pleural spaces: Unremarkable. No pneumothorax. No pleural effusion. Heart: Unremarkable. No cardiomegaly. No pericardial effusion. ABDOMEN AND PELVIS: Liver: No mass. Gallbladder and biliary ducts: Unremarkable. No calcified stones. No ductal dilation. Pancreas: Unremarkable. No mass. No ductal dilation. Spleen: Unremarkable. No splenomegaly. Adrenal glands: Unremarkable. No mass. Kidneys and ureters: Unremarkable. No solid mass. No hydronephrosis. Stomach and bowel: No pneumatosis or portal/mesenteric venous gas. No bowel wall thickening or intestinal obstruction. Appendix: No evidence of appendicitis. Intraperitoneal space: No pneumoperitoneum or abscess. Urinary bladder: Unremarkable. No mass. Reproductive: Hysterectomy. Lymph nodes: Unremarkable. No enlarged lymph nodes. Bones/joints: Unremarkable. No acute fracture. Soft tissues: Unremarkable. IMPRESSION: No acute findings. Thank you for allowing us to participate in the care of your patient. Dictated and Authenticated by: Francisco Leahy MD 03/03/2025 2:01 AM Eastern Time ([place] & [place]) Quality:SDOH Health Related Social Needs: No Data to Display PFSH All Active Problems (Updated 03/03/25 @ 02:25 by Dominic Tellez DO) Acute epigastric pain (Acute) Pain in left foot (Acute) Contracture of left Achilles tendon (Acute) Achilles tendinitis of left lower extremity (Acute) Prediabetes (Acute) Vitamin D deficiency (Acute) T2DM (type 2 diabetes mellitus) (Acute) Eosinophilic esophagitis (Acute) Bunion (Acute) Adjustment disorder (Chronic) Mild persistent asthma (Acute) Tendonitis of long head of biceps brachii of right shoulder (Acute) Arthritis of right acromioclavicular joint (Acute) Bursitis of right shoulder (Acute) BMI 32.0-32.9,adult (Acute) Bunion (Acute) Degenerative joint disease (Chronic) of first CMC joint Shoulder pain, right (Acute) Thumb pain (Acute) Bronchitis (Acute) recurrent Tinnitus, bilateral (Acute) Hot flash, menopausal (Acute) Prediabetes (Acute) Trigger finger of right thumb (Acute) Arthritis of carpometacarpal (CMC) joint of left thumb (Acute) Medical History Acute sinusitis Rhinitis, allergic Asthma Grief reaction Surgical History Hx of hysterectomy w/ovary sparing Family History Mother Alcoholism Coronary heart disease Cancer Allergies Father Heart disease Brother Diabetes Sister Diabetes Allergies Maternal Aunt Colorectal cancer Social History Smoking/Tobacco Use Status: Never Smoking risk assessment performed?: Yes Alcohol Intake: current Alcohol Intake frequency: a few times a month Drug use: Never Substance use type: does not use Current gender identity: female Do you feel safe at home: Yes Do you feel safe in your relationship?: Yes
[2025-03-03] MEDS: MORPHine 4 MG/ML SYR IVP (01:19)
[2025-03-03] MEDS: Ketorolac 15 MG/ML VIAL IVP (01:19)
--- NOTE | 2025-03-03 02:01 | DI.VRAD_ITS ---
PROCEDURE INFORMATION: Exam: CTA Chest With Contrast CTA Abdomen and Pelvis With Contrast Exam date and time: 03/03/2025 12:46 AM Age: 54 years old Clinical indication: Chest pressure; Abdominal pain; Prior surgery; Surgery date: 6+ months; Surgery type: Hysterectomy; Chest and epigastric pain, eval aorta/pancreas TECHNIQUE: Imaging protocol: Computed tomographic angiography of the chest with contrast. Exam focused on the arteries. Computed tomographic angiography of the abdomen and pelvis with contrast. Exam focused on the arteries. 3D rendering (Not supervised by radiologist): MIP and/or 3D reconstructed images were created by the technologist. Radiation optimization: All CT scans at this facility use at least one of these dose optimization techniques: automated exposure control; mA and/or kV adjustment per patient size (includes targeted exams where dose is matched to clinical indication); or iterative reconstruction. Contrast material: [id number]; Contrast volume: 100 ml; Contrast route: INTRAVENOUS (IV); COMPARISON: CR XR CHEST 2V PA LATERAL 09/01/2022 8:34 PM FINDINGS: VASCULATURE: Pulmonary arteries: Normal. No pulmonary emboli. Aorta: No aortic aneurysm. No aortic dissection. Celiac trunk and mesenteric arteries: No occlusion or significant stenosis. Renal arteries: No occlusion or significant stenosis. Right iliac arteries: No occlusion or significant stenosis. Left iliac arteries: No occlusion or significant stenosis. CHEST: Lungs: Unremarkable. No consolidation. No masses. Pleural spaces: Unremarkable. No pneumothorax. No pleural effusion. Heart: Unremarkable. No cardiomegaly. No pericardial effusion. ABDOMEN AND PELVIS: Liver: No mass. Gallbladder and biliary ducts: Unremarkable. No calcified stones. No ductal dilation. Pancreas: Unremarkable. No mass. No ductal dilation. Spleen: Unremarkable. No splenomegaly. Adrenal glands: Unremarkable. No mass. Kidneys and ureters: Unremarkable. No solid mass. No hydronephrosis. Stomach and bowel: No pneumatosis or portal/mesenteric venous gas. No bowel wall thickening or intestinal obstruction. Appendix: No evidence of appendicitis. Intraperitoneal space: No pneumoperitoneum or abscess. Urinary bladder: Unremarkable. No mass. Reproductive: Hysterectomy. Lymph nodes: Unremarkable. No enlarged lymph nodes. Bones/joints: Unremarkable. No acute fracture. Soft tissues: Unremarkable. IMPRESSION: No acute findings. Dictated and Authenticated by: Francisco Leahy MD. Orderin Geoff Alfaro MD
== END 2025-03-03 02:32 | disposition home or self-care (01) ==
PROVIDERS: Emergency Provider Student in an Organized Health Care Education/Training Program; PCP Nurse Practitioner Family
DX: R10.13 Epigastric pain (principal); R03.0 Elevated blood-pressure reading, without diagnosis of hypertension
CPT/HCPCS: 99284; 99285; 96374; 96375; 96376; 36415; 71275; 80053; 83690; 87637; 93005; 74174; 84484; 85025; 85379; 85610; 85730; 93010; J1885; J2270; J2405; J2470; J3490

== ENCOUNTER 2025-04-09 18:21 | Outpatient (REF) | payer OTHER, SELFPAY ==
[2025-04-09 18:16] LABS: COMMENT (LAB VIEW ONLY) 320.92 mg/dL; Microalb ug/mg Crea 8.3 ug/mg Cr
== END 2025-04-09 18:22 | disposition home or self-care (01) ==
LOC: NCHCN 18:21
PROVIDERS: PCP Nurse Practitioner Family; Visit Provider Nurse Practitioner Family
DX: E11.9 Type 2 diabetes mellitus without complications (principal)
CPT/HCPCS: 82043; 82570

== ENCOUNTER 2025-05-31 18:54 | Outpatient (REF) | payer OTHER, SELFPAY ==
[2025-06-05 14:12] LABS: Helicobacter pylori Ag, Feces Negative (Negative)
== END 2025-05-31 18:55 | disposition home or self-care (01) ==
LOC: NCHCN 18:54
PROVIDERS: PCP Nurse Practitioner Family; Visit Provider Family Medicine
DX: K20.0 Eosinophilic esophagitis (principal)
CPT/HCPCS: 87338

== ENCOUNTER 2025-06-21 12:03 | Day surgery (SDC) | payer OTHER, SELFPAY ==
--- NOTE | 2025-06-21 12:12 | W.ANESPRE ---
General Info Date of Service Date Performed: 06/21/25 Height: 5 ft 1 in Weight: 79.832 kg Body Mass Index (BMI): 33.2 Surgical Procedure: Operation Date: 06/21/25 13:20 Proposed Procedure Side Surgeon p Gastroscopy Arline Bernard MD Meds Allergies and Home Medications Allergies Allergy/AdvReac Type Severity Reaction Status Date / Time Sulfa (Sulfonamide Allergy Mild Hives and Verified 06/21/25 12:34 Antibiotics) itching valsartan Allergy Unknown Unknown Verified 06/21/25 12:34 venlafaxine Allergy Unknown Unknown Verified 06/21/25 12:34 Home Medication ?Medication ?Instructions ?Recorded budesonide-formoterol HFA 160 2 puff inhalation BID 04/26/18 mcg-4.5 mcg/actuation aerosol inhaler (Symbicort) Held on 03/02/25. Instructions: Pt Stopped/Never Started cetirizine 10 mg chewable tablet 10 mg PO HS 04/26/18 multivitamin 1 tab PO DAILY 12/09/23 albuterol sulfate 90 mcg/actuation 2 puff inhalation Q6H PRN 08/28/24 aerosol inhaler (Ventolin HFA) sucralfate 1 gram tablet (Carafate) 1 g PO BID #60 tabs 03/03/25 benzonatate 100 mg capsule 100 mg PO BID-TID PRN 06/05/25 dicyclomine 20 mg tablet 20 mg PO TID PRN 06/05/25 esomeprazole magnesium 40 mg 40 mg PO BID #60 caps 06/20/25 capsule,delayed release (Nexium) famotidine 20 mg tablet 20 mg PO BID PRN 06/20/25 Current Visit Medications: Current Medications Generic Name Dose Route Start Last Admin Trade Name Freq PRN Reason Stop Dose Admin Ringer's Solution 1,000 mls @ 80 mls/hr 06/21/25 06:00 IV 06/21/25 23:59 IN[facility]ION [facility] IV Miscellaneous Supplies 1 each 06/21/25 06:00 Iv Access IV 06/21/25 23:59 DIRECTED OLEKSANDR Sodium Chloride 0 ml 06/21/25 06:00 Normal Saline Flush 10 Ml Syr IV 06/21/25 23:59 PRN PRN Sodium Chloride 0 ml 06/21/25 06:00 Normal Saline 10 Ml Vial IJ 06/21/25 23:59 DIRECTED PRN Sterile Water 0 ml 06/21/25 06:00 Water,Injection,Sterile 10 Ml Vial IJ 06/21/25 23:59 DIRECTED PRN PFSH Active Problems Active Problems: Problem Status Onset Code Epigastric pain Acute R10.13 Dysphagia Acute R13.10 Bloating Acute R14.0 Recurrent epigastric abdominal pain Acute R10.13 Pain in left foot Acute M79.672 Contracture of left Achilles tendon Acute M67.02 Achilles tendinitis of left lower extremity Acute M76.62 Prediabetes Acute R73.03 Vitamin D deficiency Acute E55.9 T2DM (type 2 diabetes mellitus) Acute E11.9 Bunion Acute M21.619 Adjustment disorder Chronic F43.20 Mild persistent asthma Acute J45.30 Tendonitis of long head of biceps brachii of right shoulder Acute M75.21 Arthritis of right acromioclavicular joint Acute M19.011 Bursitis of right shoulder Acute M75.51 BMI 32.0-32.9,adult Acute Z68.32 Bunion Acute M21.619 Degenerative joint disease Chronic M19.90 Shoulder pain, right Acute M25.511 Thumb pain Acute M79.646 Bronchitis Acute J40 Tinnitus, bilateral Acute H93.13 Hot flash, menopausal Acute N95.1 Prediabetes Acute R73.03 Trigger finger of right thumb Acute M65.311 Arthritis of carpometacarpal (CMC) joint of left thumb Acute M18.12 Medical History Medical History Eosinophilic esophagitis Acute sinusitis Rhinitis, allergic Asthma Grief reaction Surgical History Surgical History Hx of hysterectomy w/ovary sparing Tobacco Smoking/Tobacco Use Status: Never Passive smoking exposure: Yes Alcohol Alcohol Intake: current Alcohol intake frequency: a few times a month Substance Use Substance use: Never Substance use type: does not use Vital Signs and Lab Results Vital Signs Most Recent Vital Signs in EMR: Temp Pulse Resp BP Pulse Ox 36.4 C L 66 16 137/69 97 06/21/25 12:28 06/21/25 12:28 06/21/25 12:28 06/21/25 12:28 08/28/25 12:28 Imaging and Studies Imaging and Studies Study information below may be from another EMR and interpreted by another provider. Please see original notes in EMR for more complete details. Stress Test Summary: IMPRESSION: Normal study, negative for ischemia. Pulmonary Function Summary: 2022:Impression Normal pulmonary function testing Clinical Correlation therefore is recommended. Anesthesia Assessment and Plan Anesthesia History Personal History: PONV Family History: No Family History of Anesthesia Complications Exercise Tolerance Exercise Tolerance: Metabolic Equivalents>4 Pertinent Negatives Pertinent Negatives: No Symptoms of GERD Cardiac & Pulmonary Exam Cardiac Exam: Normal S1/S2 Heart Sounds Pulmonary Exam: Clear Bilateral Breath Sounds Implantable Cardiac Device Does patient have a Pacemaker or an ICD?: No Airway Exam Known Difficult Airway: No Mallampati Class: 2 Mouth Opening: Normal (> 3cm) Thyromental Distance: Less than 3 cm Neck Range of Motion: Full ROM Neck Circumference: Normal Teeth Condition: Normal Dentition ASA Classification ASA Score: ASA 2 Emergency Case?: No NPO Status NPO Status: NPO Clears >2 hours, Solids >8 hours Anesthesia Plan Resuscitation Status: Full Code Anesthesia Technique: General Anesthesia Airway Planned: Natural Airway Monitors Used: Standard Monitors
[2025-06-21 12:28] VITALS: BP 137/69; PULSE 66; RESP 16; TEMP 36.4; O2SAT 97
[2025-06-21 12:41] VITALS: BMI 33.2
--- NOTE | 2025-06-21 12:42 | W.PM.DSUDISC ---
Date of service: 06/21/25 Discharge Plan Disposition Patient Disposition: Home Condition: Stable Discharge Details Attending Provider: Arline Bernard Primary Care Provider: Jewell Cutler Home Meds and New Rx's Prescriptions: Continued albuterol sulfate [Ventolin HFA] 90 mcg/actuation HFA aerosol inhaler 2 puff inhalation Q6H PRN multivitamin Tablet 1 tab PO DAILY famotidine 20 mg tablet 20 mg PO BID PRN esomeprazole magnesium [Nexium] 40 mg capsule,delayed release(DR/EC) 40 mg PO BID Qty: 60 11RF cetirizine 10 MG tablet,chewable 10 mg PO HS budesonide-formoterol [Symbicort] 10.2 GM HFA aerosol inhaler 2 puff Inhalation BID dicyclomine 20 mg tablet 20 mg PO TID PRN benzonatate 100 mg capsule 100 mg PO BID-TID PRN sucralfate [Carafate] 1 gram tablet 1 g PO BID Qty: 60 0RF Discharge Instructions Additional Instructions: EGD shows a very small hiatal hernia, which predisposes you to reflux. Even if you dont feel heartburn per se, you are refluxing. Stay on the nexium to help keep reflux to a minimum. Pepcid can be scheduled 40mg at night time, or 20mg as needed like you have been doing. scheduling it may offer an advantage to using it as needed. Stomach lining is mildly irritated. no ulcers. I took diagnostic biopsies of the digestive tract to rule out microscopic problems and confirm the eosinophilic esophagitis as the problem. I am ordering an esophagram xray, I think that is important in telling me if you have an additional esophagus spasm disorder that is making it hard for you to swallow. The esophagus LOOKED open today, no need for dilation, so lets look with the esophagus xray if its a spasm issue you are having. See you in the office as planned. Stand Alone Forms: Anesthesia Discharge Inst., [facility] Post EGD Instructions, Kalin Rodriguez ([facility]U) Referrals: Arline Bernadr MD [ [facility] STAFF PHYSICIAN, Surgery] - 07/06/25 9:30 am Activity:: Activity as Tolerated Diet:: As Tolerated Discharge Orders Discharge Orders: Discharge Order (Routine); Ordered 06/21/25 Ordered By: Arline Ghazali Other Ambulatory Orders: RF barium swallow & UGI DOUBLE (Routine) Timeframe: 10 Day Facility: [facility] - Location: DIAGNOSTIC IMAGING Ordered By: Arline Bernard DS: Diagnosis Discharge Diagnosis (1) Eosinophilic esophagitis: (2) Dysphagia: Status: Acute (3) Epigastric pain: Status: Acute (4) Mild chronic gastritis: Status: Acute (5) Hiatal hernia with gastroesophageal reflux: Status: Acute
[2025-06-21] MEDS: Lactated Ringers 1,000 ML 80 ML IV (12:47)
--- NOTE | 2025-06-21 12:58 | BOWEL_PTH ---
PATIENT: Jazmyne Cobb LOC: [facility] U#:[id number] AGE/SX: 55/F ROOM: RE06/21/[address]: Arline Bernard MD : 1970 BED: DIS: 06/21/2025 SPEC #: [id number] RECD: 06/21/25 13:27 STATUS: PAO ALVARES #: [id number] BETTY: 06/21/25 12:[address]: Arline Bernard DEPT: Surgical Specimen RECD BY: Ivette Gavin ENTERED: 06/21/25 13:29 SP TYPE: Bowel OTHR DR: Jewell Cutler Tissues: 1 - BIOPSY BOWEL 2 - STOMACH BIOPSY 3 - ESOPHAGUS BIOPSY 4 - ESOPHAGUS BIOPSY 5 - ESOPHAGUS BIOPSY Procedures: GROSS AND MICRO LEVEL 4 Comments: [id number]
[2025-06-21 13:10] VITALS: BP 120/56; PULSE 69; RESP 14; TEMP 36.7; O2SAT 96
--- NOTE | 2025-06-21 13:16 | W.PM.ENDDOP ---
Date of service: 06/21/25 Time of Service: 13:16 Endoscopy Report DATE OF PROCEDURE: 06/21/25 PRE-OP DIAGNOSIS: Epigastric pain POST-OP DIAGNOSIS: same (1. mild chronic gastritis. 2. hiatal hernia. 3. eosinophilic esophagitis) PROCEDURE: EGD with biopsy SURGEON: Arline Bernard ANESTHESIA TYPE: General:No Airway ESTIMATED BLOOD LOSS: 2 PATHOLOGY: other (1. duodenum biopsy. 2. antrum biopsy. 3. distal esophagus biopsy. 4. mid esophagus biopsy. 5. proximal esophagus biopsy. ) COMPLICATIONS: None DISPOSITION: same day PROCEDURE DESCRIPTION: Lubricated endoscope was passed through a bite block into the second portion of the duodenum. The endoscope was withdrawn and the duodenum stomach and esophageal mucosa examined. The duodenum appeared normal. There is no inflammation or ulceration or erosion. The antrum appears very mildly inflamed. The fundus appears normal. The cardia appears normal. There is vry small hiatal hernia upon retroflexion. The distal esophagus appears normal. No ulceration, varices or candidiasis. The Z-line is regular and there is no evidence of Desouza's esophagus. GE junction is at 37cm. Remainder of the esophagus appears normal Cold forceps biopsies obtained from the duodenum, antrum, distal mid and proximal esophagus for microscopic evaluation for celiac sprue, H. pylori, and eosinophilic esophagitis. The upper digestive system was desufflated and the endoscope withdrawn. No complications. Assessment and plan: Mild gastritis and hiatal hernia. No ulcer or major findings otherwise to explain epigastric pain or dysphagia. Esophagus looked unremarkable so biopsies obtained to evaluate for severity of EoE. Duodenum, antral and esophageal biopsies will determine next steps in care. recommend continued BID PPI, pepcid hs or prn to suppress acid in known EoE. UGI and esophagram ordered to eval for esophageal spasm disorders. Office follow up in 2-4 weeks.
[2025-06-21 13:39] VITALS: BP 131/62; PULSE 58; RESP 16; TEMP 36.4; O2SAT 98
--- NOTE | 2025-06-23 08:31 | W.ANESPOSTOP ---
Postoperative Evaluation Date, Time and Location Date Performed: 06/21/25 Time Performed: 13:45 Patient Location: Day Surgery Unit Vital Signs Most Recent Imported Vital Signs: Most Recent Vital Signs Temp Pulse Resp BP Pulse Ox 36.4 C L 58 L 16 131/62 98 06/21/25 13:39 06/21/25 13:39 06/21/25 13:39 06/21/25 13:39 06/21/25 13:39 Pain Score Most Recent Pain Score: Most Recent Pain Score Pain Level 0 06/21/25 13:39 Assessment Mental Status: Awake (Alert & Oriented to Patient Baseline) Airway and Respiratory Function: Patent airway with normal (patient baseline) respiratory exam Cardiovascular Function: Hemodynamically Stable Hydration Status: Adequately Hydrated Nausea & Vomiting: No Nausea or Vomiting Pain: Pt. Denies Any Pain Peripheral Nerve Block: Patient did not receive a nerve block
== END 2025-06-21 13:56 | disposition home or self-care (01) ==
PROVIDERS: PCP Nurse Practitioner Family; Visit Provider Surgery
PROC: 0DJ68ZZ Inspection of Stomach, Via Natural or Artificial Opening Endoscopic (ICD-10-PCS; CPT 43235; principal; 2025-06-21 13:15)
DX: R10.13 Epigastric pain (principal); R13.10 Dysphagia, unspecified; K20.0 Eosinophilic esophagitis; K29.50 Unspecified chronic gastritis without bleeding; K44.9 Diaphragmatic hernia without obstruction or gangrene; K21.9 Gastro-esophageal reflux disease without esophagitis; K31.9 Disease of stomach and duodenum, unspecified; K22.9 Disease of esophagus, unspecified
CPT/HCPCS: 43239; 88305; J2003; J2704

== ENCOUNTER 2025-07-09 11:41 | Outpatient (REF) | payer OTHER, SELFPAY ==
[2025-07-09 16:15] LABS: Abs Immature Grans 0.01 10^3/uL (0.0-0.06); HCT 40.8 % (36.0-46.0); HGB 13.5 g/dL (11.2-15.7); Immature Grans % 0.2 %; MCH 30.6 pg (27.0-33.0); MCHC 33.1 % (32.0-36.0); MCV 93 fL (80-95); MPV 12.3 fL (8.0-11.0); Platelet Count 216 10^3/uL (130-400); RBC 4.41 10^6/uL (3.93-5.22); RDW 12.6 % (11.7-14.6); RDW-SD 43.4 fL; WBC 5.99 10^3/uL (4.4-10.8)
[2025-07-09 16:31] LABS: ALT 31 U/L (14-59); AST 24 U/L (15-37); Albumin 3.7 g/dL (3.4-5.0); Alkaline Phosphatase 105 U/L (46-116); Amylase 115 U/L (25-115); Anion Gap 9.2 mmol/L (3-11); BUN 10 mg/dL (7-18); Bilirubin, Direct 0.2 mg/dL (0.0-0.2); Bilirubin, Total 0.9 mg/dL (0.2-1.0); CO2 29.8 mmol/L (21.0-32.0); Calcium 9.1 mg/dL (8.5-10.1); Chloride 104 mmol/L (98-107); Estimated GFR 100.81 (mL/min/1.73m2); Glucose 152 mg/dL (74-106); Lipase 46 U/L (<78); Potassium 4.1 mmol/L (3.5-5.1); Sodium 143 mmol/L (136-145); Total Protein 6.8 g/dL (6.4-8.2)
== END 2025-07-09 11:42 | disposition home or self-care (01) ==
LOC: NCHCN 11:41
PROVIDERS: PCP Nurse Practitioner Family; Visit Provider Nurse Practitioner Family
DX: R10.9 Unspecified abdominal pain (principal)
CPT/HCPCS: 80053; 83690; 82150; 82248; 85025

== ENCOUNTER 2025-07-19 04:07 | Outpatient (CLI) | payer OTHER, SELFPAY ==
--- NOTE | 2025-07-19 | DI.MAMMO_ITS ---
Exam(s) MAMMO SCREENING EXAM: MAMMO SCREENING CLINICAL HISTORY: SCREENING MAMMO Z12.31 TECHNIQUE: Mammograms were interpreted according to the usual protocol including computer analysis with CAD system, tomosynthesis and C-view imaging. COMPARISON: 2014 through 2022 FINDINGS: The breasts are composed of scattered fibroglandular densities, Breast Density category B. No suspicious masses or suspicious microcalcifications are seen. No skin thickening or abnormal axillary lymph nodes are seen. There has been no significant change from prior exams. IMPRESSION: BI-RADS Category 1, Negative mammogram Yearly screening mammography is recommended. Breast Density - Category B - There are scattered areas of fibroglandular density. Breast density Category C or D implies that the patient has dense breast tissue. Dense breast tissue can make it harder to find cancer on a mammogram. Dense breast tissue is also associated with an increased risk of breast cancer. This information about the result of the mammogram report was provided to the patient to raise their awareness. Use this report when you speak with the patient about their risks for breast cancer, which includes their family history. At that time, you may recommend additional screening tests (Ultrasound or MRI) as these tests may add significant information. A negative radiographic report should not delay biopsy if a dominant or clinically suspicious mass is present. Up to ten percent of cancers are not identified on mammography. A negative report may reinforce clinical impression. Adenosis and dense breasts may obscure an underlying neoplasm. False positive reports average 6 to 10%. Patient will receive a letter notifying them of these results.
== END 2025-07-19 04:27 ==
LOC: DI 04:07
PROVIDERS: PCP Nurse Practitioner Family; Visit Provider Nurse Practitioner Family
DX: Z12.31 Encounter for screening mammogram for malignant neoplasm of breast (principal); R92.323 Mammographic fibroglandular density, bilateral breasts
CPT/HCPCS: 77063; 77067

== ENCOUNTER 2025-08-06 02:19 | Outpatient (CLI) | payer OTHER, SELFPAY ==
--- NOTE | 2025-08-06 06:30 | DI.RAD_ITS ---
Exam(s) RF BARIUM SWALLOW UGI EXAM: RF BARIUM SWALLOW UGI CLINICAL HISTORY: dysphagia, epigastric pain, swallowing difficulty,R10.13,R13.10 TECHNIQUE: 2D and realtime digital imaging was performed. CONTRAST MATERIAL: Thick and thin barium were administered. COMPARISON: CT CT THORAX ABD/PEL CTA from 03/03/2025 FINDINGS: The PA and lateral chest films show normal heart size and clear lung rodriguez. The lateral fixture relamper view of the neck is unremarkable. This fixture relamper view of the abdomen is unremarkable. Esophagus: The patient swallowed barium without difficulty. Noevidence for mucosal erosions. Nofold thickening. No mass is visible. Nostricture. Motility: There is a normal primary stripping wave. No tertiary contractions were noted. There is no hiatal hernia. Mild gastroesophageal reflux was observed during the exam. Stomach: Unremarkable. Normal gastric emptying. Duodenum: Normal appearance. No evidence of ulceration or stricture. IMPRESSION: Mild gastroesophageal reflux. RADIATION DOSE DELIVERED: Manolor=30.3 mGy
--- NOTE | 2025-08-06 06:30 | DI.US_ITS ---
Exam(s) US ABDOMEN EXAM: US ABDOMEN CLINICAL HISTORY: RECURRENT epigastric and RUQ pain,BLOATING,R10.13,R14.O TECHNIQUE: Ultrasound abdomen performed using standard protocol. COMPARISON: CT CT THORAX ABD/PEL CTA from 03/03/2025 FINDINGS: LIVER: Normal size. Mildly increased echogenicity consistent with mild hepatic steatosis no focal liver lesions are seen. GALLBLADDER: No evidence of cholelithiasis. No evidence of wall thickening. No pericholecystic fluid identified. TATUM'S SIGN: Negative. BILIARY SYSTEM: No intrahepatic or extrahepatic biliary ductal dilation. KIDNEYS: Kidneys are symmetric in size. No evidence of renal calculi. No evidence of hydronephrosis. No renal mass or cyst identified. PANCREAS: Normal where visualized. SPLEEN: Not enlarged. ABDOMINAL AORTA AND IVC: Visualized portions normal caliber. ASCITES: None seen. IMPRESSION: Normal size liver with mild hepatic steatosis. DATA REPOSITORY:
[2025-08-06] MEDS: Barium Sulfate 98% W/W 140 ML BTL PO (10:27)
[2025-08-06] MEDS: Barium Sulfate 60% W/V 355 ML BTL PO (10:27)
[2025-08-06] MEDS: Simethicone/Sod Bicarb/Cit Ac, 4 gram PACKET 1 PACKET PO (10:29)
== END 2025-08-06 02:39 ==
LOC: DI 02:19
PROVIDERS: PCP Nurse Practitioner Family; Visit Provider Surgery
DX: K20.0 Eosinophilic esophagitis; K21.9 Gastro-esophageal reflux disease without esophagitis
CPT/HCPCS: 74221; 74246; 76700; J3490

== ENCOUNTER 2025-09-28 02:32 | Outpatient (CLI) | payer OTHER, SELFPAY ==
--- NOTE | 2025-10-02 08:25 | W.PFT ---
Date of service: 09/28/25 Time of Service: 08:00 Pulmonary Function Test Result Indications: Asthma Impression 1. Good patient effort was noted. ATS standards for reproducibility were met. 2. Normal spirometry.
== END 2025-09-28 02:33 | disposition home or self-care (01) ==
LOC: RT 02:32
PROVIDERS: PCP Nurse Practitioner Family; Visit Provider Internal Medicine Pulmonary Disease
DX: J45.40 Moderate persistent asthma, uncomplicated (principal); K44.9 Diaphragmatic hernia without obstruction or gangrene; K21.9 Gastro-esophageal reflux disease without esophagitis
CPT/HCPCS: 94010